=== PATIENT | female | born 1935 | race Caucasian/White ===

== ENCOUNTER 2018-07-11 07:13 | Outpatient (CLI) | payer OTHER | END 2018-07-11 15:50 | disposition home or self-care (01) | LOC: TOM 07:13 | DX: K56.600 Partial intestinal obstruction, unspecified as to cause (principal); Z85.038 Personal history of other malignant neoplasm of large intestine; K63.5 Polyp of colon ==

== ENCOUNTER 2019-11-19 09:01 | Outpatient (CLI) | payer OTHER | END 2019-11-19 09:07 | disposition home or self-care (01) | LOC: SONOGRAMA 09:01 | PROVIDERS: ATTEND Pathology Anatomic Pathology & Clinical Pathology | DX: E04.2 Nontoxic multinodular goiter (principal) ==

== ENCOUNTER 2020-12-19 06:08 | Day surgery (SDC) | payer OTHER ==
[~2020-12-19 06:08] MED LIST: ARICEPT10 MG PO; CRESTOR10 MG PO; ELIQUIS5 MG PO; GLIMEPIRIDE2 MG PO; HORIZANT300 MG PO; ISORBIDE PO; JANUMET XR 50-1 EAC1 PO; NAMENDA10 MG PO; SYNTHROID75 MCG PO; TOPROL XL25 M1 PO; VITAMIN D-40010 MCG PO; [UNRECOGNIZED DRUG - OTHER] PO
== END 2020-12-19 12:20 | disposition home or self-care (01) ==
LOC: CIR.AMB 06:08
PROVIDERS: ATTEND Colon & Rectal Surgery
DX: T85.111A Breakdown (mechanical) of implanted electronic neurostimulator of peripheral nerve electrode (lead), initial encounter (principal); Z20.822 Contact with and (suspected) exposure to COVID-19
CPT/HCPCS: 64590; 95971; L8679

== ENCOUNTER 2021-03-28 08:10 | Outpatient (CLI) | payer OTHER | END 2021-03-28 08:25 | disposition home or self-care (01) | LOC: RX STUDY 08:10 | PROVIDERS: ATTEND Internal Medicine Gastroenterology | DX: R13.12 Dysphagia, oropharyngeal phase (principal) ==

== ENCOUNTER → 2021-08-21 | Outpatient (CLI) | payer OTHER | END | disposition home or self-care (01) | LOC: TOM 08:40 | PROVIDERS: ATTEND Internal Medicine Gastroenterology | DX: Z85.038 Personal history of other malignant neoplasm of large intestine (principal); K56.609 Unspecified intestinal obstruction, unspecified as to partial versus complete obstruction; R19.5 Other fecal abnormalities; K63.5 Polyp of colon ==

== ENCOUNTER 2022-04-04 06:30 | Day surgery (SDC) | payer OTHER | END 2022-04-04 10:45 | disposition home or self-care (01) | LOC: AMB-ENDOS 06:30 | PROVIDERS: ATTEND Colon & Rectal Surgery | DX: D12.2 Benign neoplasm of ascending colon (principal); D12.4 Benign neoplasm of descending colon; Z20.822 Contact with and (suspected) exposure to COVID-19; K57.30 Diverticulosis of large intestine without perforation or abscess without bleeding; K64.4 Residual hemorrhoidal skin tags ==

== ENCOUNTER 2022-08-02 08:11 | Outpatient (CLI) | payer OTHER | END 2022-08-02 08:15 | disposition home or self-care (01) | LOC: SONOGRAMA 08:11 | PROVIDERS: ATTEND Pathology Anatomic Pathology & Clinical Pathology | DX: D34 Benign neoplasm of thyroid gland (principal); E04.9 Nontoxic goiter, unspecified; E04.2 Nontoxic multinodular goiter ==